=== PATIENT | male | born 1960 | race Caucasian/White ===

== ENCOUNTER 2025-07-22 10:57 | Emergency (ER) | payer OTHER ==
[~2025-07-22] VITALS: Ht 195.6 cm; Wt 122.2 kg
--- NOTE | 2025-07-22 11:27 | ED.PDOC ---
Tiffani. trauma (HPI) HPI Comments HPI: 64 year old male presents to the ED with a chief complaint of fall injury onset this morning around 02:00. Patient states he woke up this morning around 02:00, tripped over his dog, hit his head and LT eye on laundry hamper, had LOC for a few seconds. states patient tried to get up, experienced two consecutive syncopal episodes, witnessed by , assisted to ground. He is currently experiencing Lt eye pain with bruising and redness, RT knee pain and swelling. Denies chest pain, blurred vision, changes in vision, numbness/tingling, headache, nausea, vomiting, diarrhea. No other symptoms or modifying factors present at this time. Initial Vitals BP: 174/105 HR: 95 RR: 20 O2 Sat: 99% Temp: 98.0 F Past Medical history: HTN Past Surgical history: LT knee surgery -x3 Medications: Denies Social History: Denies smoking, ETOH, and drug use. Allergies: NKDA [place]: fall, syncope, L periorbital/eye lid injury contusion. neuro intact. c spine intact. L knee pain, normal. HPI: Poor Historian. REVIEW OF SYSTEMS: CONSTITUTIONAL: Denies acute: fever, diaphoresis, chills, generalized weakness. HEAD: Denies acute: headache, photophobia Eyes: Denies acute: Double vision, vision loss, eye discharge. EARS: Denies acute: tinnitus, hearing loss, ear discharge, ear pain, THROAT: Denies acute: sore throat, swelling, difficulty swallowing , pain with swallowing, change in voice. NECK: Denies acute: neck pain, neck swelling, stiff neck. HEART: Denies acute : chest pain, palpitations, LUNGS: Denies acute: SOB, wheezing, cough, hemoptysis ABDOMEN: Denies acute: abdominal pain, Nausea, Vomiting, diarrhea, melena , hematemesis, hematochezia SKIN: Denies acute: rash, redness, lesions, itchiness. EXTREMITIES: Denies acute: calf pain, numbness, tingling, weakness, denies pain in extremity. Denies acute: Low back pain. Neuro: Denies acute: focal neurological deficit, motor or sensory focal neurological deficit, tremors, seizure like activity, confusion, change in mental status, loss of bowel or bladder function, cauda equina like symptoms. : Denies acute: dysuria, hematuria, flank pain, increase in urinary frequency. PSYCH: Denies acute: hallucination, suicidal ideation, homicidal ideation. PHYSICAL EXAM: General: ----no----acute distress, awake and alert. Head: normocephalic, atraumatic. No raccoon's eyes, no roy sign. Neck: supple, trachea is midline, no swelling. Cervical spine: Palpation of the posterior midline of the cervical spine reveals no focal swelling, erythema, focal tenderness to palpation. Patient has normal range of motion. Throat: Normal phonation. Eyes:, no purulent discharge, no proptosis, no icterus. Left upper eyelid contusion. No entrapment. Extraocular muscles are intact. No vision changes. Heart: regular rate, regular rhythm, no significant murmur appreciated. Lungs: no apparent respiratory distress, Able to speak in full sentences. No wheezing, no rhonchi, no crackles. No stridors Clear to auscultation bilaterally. Abdomen: non tender to palpation, non distended, soft, no guarding, no rebound, + bowel sounds. Neuro: Awake, Alert, oriented to name, self, situation, follows commands GCS=15. Speech is normal. Skin: no petechia, no purpura, no cyanosis, non-pale, not jaundice. Lower extremities: --no - Pitting edema no deformity, no focal swelling, no calf TTP. Makes eye contact. moves all four extremities. Face: no apparent facial droop. Ambulating in the ED independently. PERRLA, EOM-I CN 2-12 are grossly intact, No nystagmus. No nuchal rigidity, Kernig's sign, Brudzinski's sign, no meningeal signs. ED COURSE: DISCLAIMER: This medical document was created using an electronic medical record system with voice recognition software and computerized dictation system. Although this document has been carefully reviewed, there might still be some phonetic and typographical errors. Occasional wrong-word or "sound-alike" substitutions may have occurred due to the inherent limitations of voice recognition software. These areas are purely typographical due to imperfections of the software programs and do not reflect any compromise in the patient's medical care. Please read the chart carefully and recognize, using context, where these substitutions have occurred. Chief Complaint: Fall Injury Time Seen by MD: 11:20 Reviewed notes: Medications, Allergies Information Source: Patient, Spouse Mode of Arrival: Ambulatory Timing: Hours Duration: Since onset Prehospital treatment: None Past Medical History PAST MEDICAL HISTORY: HTN Surgical History: Denies all surgeries Family History Family History: Reviewed,noncontributory to illness, No family hx of Cancer, No family hx of DM, No family hx of Heart esther, No family hx of HTN, No family hx ofKidney esther, No family hx of Liver esther, No family hx of Lung esther, No family hx of Stroke Social History Smoker: Non-Smoker Alcohol: Occasionally Drugs: Denies Drug Use Lives In: Home Was a procedure done? Was a procedure done?: No X-Ray, Labs, Meds, VS Vital Signs Date Time Temp Pulse Resp B/P (MAP) Pulse Ox O2 Delivery O2 Flow Rate FiO2 07/22/25 11:01 98.0 95 20 174/105 99 98.0 Lab Test 07/22/25 12:22 07/22/25 11:38 Range/Units Troponin I High Sensitivity 21 Pending White Blood Count 6.3 4.4-10.8 10^3/uL Red Blood Count 5.10 4.5-5.90 10^6/uL Hemoglobin 17.5 13.5-17.5 g/dL Hematocrit 49.1 41.0-53.0 % Mean Corpuscular Volume 96.2 80.0-100.0 fL Mean Corpuscular Hemoglobin 34.4 H 28.0-32.0 pg Mean Corpuscular Hemoglobin Concent 35.8 32.0-36.0 g/dL Red Cell Distribution Width 13.1 11.8-14.3 % Platelet Count 245 140-450 10^3/uL Mean Platelet Volume 7.2 6.9-10.8 fL Neutrophils (%) (Auto) 63.9 37.0-80.0 % Lymphocytes (%) (Auto) 22.4 10.0-50.0 % Monocytes (%) (Auto) 10.5 0.0-12.0 % Eosinophils (%) (Auto) 2.8 0.0-7.0 % Basophils (%) (Auto) 0.4 0.0-2.0 % Neutrophils # (Auto) 4.0 1.6-8.6 10 ^3/uL Lymphocytes # (Auto) 1.4 0.4-5.4 10 ^3/uL Monocytes # (Auto) 0.7 0-1.3 10 ^3/uL Eosinophils # (Auto) 0.2 0-0.8 10 ^3/uL Basophils # (Auto) 0 0-0.2 10 ^3/uL Nucleated Red Blood Cells 0.1 % Sodium Level 138 136-145 mmol/L Potassium Level 3.9 3.5-5.1 mmol/L Chloride Level 102 98-107 mmol/L Carbon Dioxide Level 26 20-31 mmol/L Anion Gap 10 5-15 Blood Urea Nitrogen 8 L 9-23 mg/dL Creatinine 1.10 0.700-1.30 mg/dL Glomerular Filtration Rate Calc 75 >90 mL/min BUN/Creatinine Ratio 7.3 L 10.0-20.0 Serum Glucose 117 H 74-106 mg/dL Calcium Level 9.6 8.7-10.4 mg/dL Total Bilirubin 0.8 0.2-1.0 mg/dL Aspartate Amino Transferase (AST) 38 13-40 U/L Alanine Aminotransferase (ALT) 50 H 7-40 U/L Alkaline Phosphatase 91 46-116 U/L Total Protein 8.0 5.7-8.2 g/dL Albumin 4.9 H 3.2-4.8 g/dL Plasma/Serum Blood Alcohol < 3.0 <10 mg/dL [place] [address] Ph: [phone] DIAGNOSTIC IMAGING Diagnostic Imaging Report : [id number] Signed PATIENT: MARCOS PENDLETON ACCT: [id number] UNIT: [id number] : 1960 LOC: ER ROOM / BED: / AGE / SEX: 64 / M ADM STATUS: REG ER SERVICE 1122 ORDERING PHYSICIAN: NEAL CANELA DO PROCEDURE(s): FAC2C - MAXILLOFACIAL WITHOUT REASON: fall, L eye bruise ORDER NUMBER(s): [id number], ACCESSION NUMBER(s): [id number] CLINICAL INFORMATION: Fall injury. Left eye bruising. TECHNIQUE: Axial CT images of the maxillofacial region were obtained without contrast. Coronal and sagittal reformatted images were obtained, reviewed, and stored. One or more of the following dose reduction techniques were used: Automated exposure control. Adjustment of mA and/or kV according to patient size. CTDIvol = 66.95 mGy DLP = 1660.99 mGy-cm COMPARISON: None FINDINGS: The pterygoid plates and zygomatic arches are intact. Sinus arguello and orbital arguello are intact. Nasal bones and mandible are intact. No evidence of facial bone fracture. Mild left periorbital soft tissue swelling/hematoma. No orbital hematoma. Globes and orbital structures appear otherwise intact. No significant proptosis. Mild mucosal thickening of the paranasal sinuses. No significant soft tissue abnormality identified. IMPRESSION: 1. No evidence of acute facial bone fracture. 2. Mild left periorbital soft tissue swelling/hematoma. No orbital hematoma. Globes and orbital structures appear otherwise intact. ATED BY: EARL GALLEGOS DO DICTATED DATE/TIME: 07/22/25 1236 SIGNED BY: EARL GALLEGOS DO SIGNED DATE/TIME: 07/22/25 1236 CC: [place] [address] Ph: [phone] DIAGNOSTIC IMAGING Diagnostic Imaging Report : [id number] Signed PATIENT: MARCOS PENDLETON ACCT: [id number] UNIT: [id number] : 1960 LOC: ER ROOM / BED: / AGE / SEX: 64 / M ADM STATUS: REG ER SERVICE 1122 ORDERING PHYSICIAN: NEAL CANELA DO PROCEDURE(s): LKNE3 - L KNEE 3V XRAY REASON: fall ORDER NUMBER(s): [id number], ACCESSION NUMBER(s): [id number] CLINICAL INDICATION: fall TECHNIQUE: 3-view XY L KNEE 3V XRAY COMPARISON: None FINDINGS/IMPRESSION: : There is no evidence of acute fracture or dislocation. Soft tissues are unremarkable. 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 Moderate joint effusion. No fracture ATED BY: BERNADINE DARNELL MD DICTATED DATE/TIME: 07/22/251226 SIGNED BY: BERNADINE DARNELL MD SIGNED DATE/TIME: 07/22/251226 CC: [place] [address] Ph: [phone] DIAGNOSTIC IMAGING Diagnostic Imaging Report : [id number] Signed PATIENT: MARCOS PENDLETON ACCT: [id number] UNIT: [id number] : 1960 LOC: ER ROOM / BED: / AGE / SEX: 64 / M ADM STATUS: REG ER SERVICE 21 ORDERING PHYSICIAN: NEAL CANELA DO PROCEDURE(s): HWOCT - HEAD WITHOUT CONTRAST REASON: head injury ORDER NUMBER(s): [id number], ACCESSION NUMBER(s): [id number] EXAM: CT HEAD WITHOUT CONTRAST INDICATION: head injury TECHNIQUE: CT of the head without intravenous contrast. Radiation Dose : 1. Head: CT Dose: CTDI volume is 123 mGy. Dose-length product is 3121 mGy*cm The dose indicators for CT are the volume Computed Tomography (CT) Dose Index (CTDIvol) and the Dose Length Product (DLP), and are measured in units of mGy and mGy-cm, respectively. These indicators are not patient dose, but values generated from the CT scanner acquisition factors. The report includes radiation exposure data for exposures received during this examination. COMPARISON: None FINDINGS: There is no evidence of acute intracranial hemorrhage, extra-axial collection, mass effect, midline shift, herniation or hydrocephalus. The ventricles, sulci and cisterns are age appropriate. The barragan-white differentiation is intact. Patchy periventricular and subcortical white matter hypoattenuation is non specific but may be related to small vessel ischemic disease. The visualized paranasal sinuses and mastoid air cells are clear. The surrounding soft tissues and osseous structures are unremarkable. 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 IMPRESSION: 1. No acute intracranial abnormality. Radiation optimization: All CT scans at this facility use at least one of these dose optimization techniques: automated exposure control mA and/or kV adjustment per patient size (includes targeted exams where dose is matched to clinical indication) or iterative reconstruction. ATED BY: BERNADINE DARNELL MD DICTATED DATE/TIME: 07/22/25 1231 SIGNED BY: BERNADINE DARNELL MD SIGNED DATE/TIME: 07/22/25 1231 CC: Time of 1ST Reevaluation: 11:50 Reevaluation 1ST: Unchanged Time of 2ND Reevaluation: 13:30 (The case was discussed with the [facility] admitting team (HPI, physical exam, labs and diagnostic tests that were available at the time of disposition, ED course, treatment plan) on the phone. They agreed to transfer the patient to their service by ALS for further evaluation and treatment. Dr. alonzo--. Authorization number is--[id number]) Reevaluation 2ND: Unchanged Patient Education/Counseling: Diagnosis, Treatment Family Education/Counseling: Diagnosis, Treatment Departure 1 Departure Time of Disposition: 12:47 Impression: Primary Impression: Syncope Additional Impressions: Closed head injury Contusion, eyelid, left Fall Moderate sized effusion of knee Disposition: ADMITTED INPATIENT Additional Instructions: [place] [address] Ph: [phone] DIAGNOSTIC IMAGING Diagnostic Imaging Report : [id number] Signed PATIENT: MARCOS PENDLETON ACCT: [id number] UNIT: [id number] : 1960 LOC: ER ROOM / BED: / AGE / SEX: 64 / M ADM STATUS: REG ER SERVICE 1122 ORDERING PHYSICIAN: NEAL CANELA DO PROCEDURE(s): FAC2C - MAXILLOFACIAL WITHOUT REASON: fall, L eye bruise ORDER NUMBER(s): [id number], ACCESSION NUMBER(s): [id number] CLINICAL INFORMATION: Fall injury. Left eye bruising. TECHNIQUE: Axial CT images of the maxillofacial region were obtained without contrast. Coronal and sagittal reformatted images were obtained, reviewed, and stored. One or more of the following dose reduction techniques were used: Automated exposure control. Adjustment of mA and/or kV according to patient size. CTDIvol = 66.95 mGy DLP = 1660.99 mGy-cm COMPARISON: None FINDINGS: The pterygoid plates and zygomatic arches are intact. Sinus arguello and orbital arguello are intact. Nasal bones and mandible are intact. No evidence of facial bone fracture. Mild left periorbital soft tissue swelling/hematoma. No orbital hematoma. Globes and orbital structures appear otherwise intact. No significant proptosis. Mild mucosal thickening of the paranasal sinuses. No significant soft tissue abnormality identified. IMPRESSION: 1. No evidence of acute facial bone fracture. 2. Mild left periorbital soft tissue swelling/hematoma. No orbital hematoma. Globes and orbital structures appear otherwise intact. ATED BY: EARL GALLEGOS DO DICTATED DATE/TIME: 07/22/251235 SIGNED BY: EARL GALLEGOS DO SIGNED DATE/TIME: 07/22/251235 CC: [place] [address] Ph: [phone] DIAGNOSTIC IMAGING Diagnostic Imaging Report : [id number] Signed PATIENT: MARCOS PENDLETON ACCT: [id number] UNIT: [id number] : 1960 LOC: ER ROOM / BED: / AGE / SEX: 64 / M ADM STATUS: REG ER SERVICE 1122 ORDERING PHYSICIAN: NEAL CANELA DO PROCEDURE(s): LKNE3 - L KNEE 3V XRAY REASON: fall ORDER NUMBER(s): [id number], ACCESSION NUMBER(s): [id number] CLINICAL INDICATION: fall TECHNIQUE: 3-view XY L KNEE 3V XRAY COMPARISON: None FINDINGS/IMPRESSION: : There is no evidence of acute fracture or dislocation. Soft tissues are unremarkable. 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 Moderate joint effusion. No fracture ATED BY: BERNADINE DARNELL MD DICTATED DATE/TIME: 07/22/251226 SIGNED BY: BERNADINE DARNELL MD SIGNED DATE/TIME: 07/22/251226 CC: [place] [address] Ph: [phone] DIAGNOSTIC IMAGING Diagnostic Imaging Report : [id number] Signed PATIENT: MARCOS PENDLETON ACCT: [id number] UNIT: [id number] : 1960 LOC: ER ROOM / BED: / AGE / SEX: 64 / M ADM STATUS: REG ER SERVICE 1122 ORDERING PHYSICIAN: NEAL CANELA DO PROCEDURE(s): HWOCT - HEAD WITHOUT CONTRAST REASON: head injury ORDER NUMBER(s): [id number], ACCESSION NUMBER(s): [id number] EXAM: CT HEAD WITHOUT CONTRAST INDICATION: head injury TECHNIQUE: CT of the head without intravenous contrast. Radiation Dose : 1. Head: CT Dose: CTDI volume is 123 mGy. Dose-length product is 3121 mGy*cm The dose indicators for CT are the volume Computed Tomography (CT) Dose Index (CTDIvol) and the Dose Length Product (DLP), and are measured in units of mGy and mGy-cm, respectively. These indicators are not patient dose, but values generated from the CT scanner acquisition factors. The report includes radiation exposure data for exposures received during this examination. COMPARISON: None FINDINGS: There is no evidence of acute intracranial hemorrhage, extra-axial collection, mass effect, midline shift, herniation or hydrocephalus. The ventricles, sulci and cisterns are age appropriate. The barragan-white differentiation is intact. Patchy periventricular and subcortical white matter hypoattenuation is nonspecific but may be related to small vessel ischemic disease. The visualized paranasal sinuses and mastoid air cells are clear. The surrounding soft tissues and osseous structures are unremarkable. 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 IMPRESSION: 1. No acute intracranial abnormality. Radiation optimization: All CT scans at this facility use at least one of these dose optimization techniques: automated exposure control mA and/or kV adjustment per patient size (includes targeted exams where dose is matched to clinical indication) or iterative reconstruction. ATED BY: BERNADINE DARNELL MD DICTATED DATE/TIME: 07/22/25 123 SIGNED BY: BERNADINE DARNELL MD SIGNED DATE/TIME: 07/22/25 123 Discharged With: Self Critical Care Note Critical Care Time?: No I personally scribed for NEAL CANELA DO ([email or web address]) on 07/22/25 at 11:27. Electronically submitted by Angelica Goodson ([email or web address]). I personally scribed for NEAL CANELA DO ([email or web address]) on 07/22/25 at 11:34. Electronically submitted by Angelica Goodson ([email or web address]). I personally scribed for NEAL CANELA DO ([email or web address]) on 07/22/25 at 12:43. Electronically submitted by Angelica Goodson ([email or web address]). NEAL CANELA DO Jul 22, 2025 11:27
[2025-07-22 11:59] LABS: Hematocrit 49.1 % (41.0-53.0); Mean Corpuscular Hemoglobin 34.4 pg (28.0-32.0); Nucleated Red Blood Cells % 0.1 %
[2025-07-22 12:02] LABS: Hemoglobin 17.5 g/dL (13.5-17.5); Mean Corpuscular Volume 96.2 fL (80.0-100.0)
[2025-07-22 12:15] LABS: Alkaline Phosphatase 91 U/L (46-116); Anion Gap 10 (5-15); BUN/Creatinine Ratio 7.3 (10.0-20.0); Calcium 9.6 mg/dL (8.7-10.4); Carbon Dioxide 26 mmol/L (20-31); Chloride 102 mmol/L (98-107); Potassium 3.9 mmol/L (3.5-5.1); Sodium 138 mmol/L (136-145); Total Protein 8.0 g/dL (5.7-8.2)
[2025-07-22 12:16] LABS: Alanine Aminotransferase 50 U/L (7-40); Albumin 4.9 g/dL (3.2-4.8); Bilirubin, Total 0.8 mg/dL (0.2-1.0); Blood Urea Nitrogen 8 mg/dL (9-23); Glucose 117 mg/dL (74-106)
--- NOTE | 2025-07-22 12:30 | DVH ---
CLINICAL INDICATION: fall TECHNIQUE: 3-view XY L KNEE 3V XRAY COMPARISON: None FINDINGS/IMPRESSION: : There is no evidence of acute fracture or dislocation. Soft tissues are unremarkable. 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 Moderate joint effusion. No fracture
--- NOTE | 2025-07-22 12:33 | DVH ---
EXAM: CT HEAD WITHOUT CONTRAST INDICATION: head injury TECHNIQUE: CT of the head without intravenous contrast. Radiation Dose : 1. Head: CT Dose: CTDI volume is 123 mGy. Dose-length product is 3121 mGy*cm The dose indicators for CT are the volume Computed Tomography (CT) Dose Index (CTDIvol) and the Dose Length Product (DLP), and are measured in units of mGy and mGy-cm, respectively. These indicators are not patient dose, but values generated from the CT scanner acquisition factors. The report includes radiation exposure data for exposures received during this examination. COMPARISON: None FINDINGS: There is no evidence of acute intracranial hemorrhage, extra-axial collection, mass effect, midline shift, herniation or hydrocephalus. The ventricles, sulci and cisterns are age appropriate. The barragan-white differentiation is intact. Patchy periventricular and subcortical white matter hypoattenuation is nonspecific but may be related to small vessel ischemic disease. The visualized paranasal sinuses and mastoid air cells are clear. The surrounding soft tissues and osseous structures are unremarkable. 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 IMPRESSION: 1. No acute intracranial abnormality. Radiation optimization: All CT scans at this facility use at least one of these dose optimization techniques: automated exposure control mA and/or kV adjustment per patient size (includes targeted exams where dose is matched to clinical indication) or iterative reconstruction.
--- NOTE | 2025-07-22 12:38 | DVH ---
CLINICAL INFORMATION: Fall injury. Left eye bruising. TECHNIQUE: Axial CT images of the maxillofacial region were obtained without contrast. Coronal and sagittal reformatted images were obtained, reviewed, and stored. One or more of the following dose reduction techniques were used: Automated exposure control. Adjustment of mA and/or kV according to patient size. CTDIvol = 66.95 mGy DLP = 1660.99 mGy-cm COMPARISON: None FINDINGS: The pterygoid plates and zygomatic arches are intact. Sinus arguelol and orbital arguello are intact. Nasal bones and mandible are intact. No evidence of facial bone fracture. Mild left periorbital soft tissue swelling/hematoma. No orbital hematoma. Globes and orbital structures appear otherwise intact. No significant proptosis. Mild mucosal thickening of the paranasal sinuses. No significant soft tissue abnormality identified. IMPRESSION: 1. No evidence of acute facial bone fracture. 2. Mild left periorbital soft tissue swelling/hematoma. No orbital hematoma. Globes and orbital structures appear otherwise intact.
[2025-07-22 14:09] VITALS: PULSE 91; RESP 18; O2SAT 99
[2025-07-22] MEDS ORDERED: LABETALOL HCL 20 MG/4 ML VL IV ONE (14:15)
[2025-07-22] MEDS: hydrALAZINE HCL 20 MG/ML VL IV ONE ×2 (14:36→15:14)
--- NOTE | 2025-07-22 16:37 | ECG ---
[facility] Test Date: 2025-07-22 Test Time: 14:13:12 Pat Name: MARCOS PENDLETON Department: ED Room: Gender: M Warp Tension Tester: FAY : 1960 Requested By: NEAL CANELA Order Number: [id number] Reading MD: Measurements Intervals [place] Rate: 84 P: 48 AR: 157 QRS: 26 QRSD: 78 T: -13 QT: 351 QTc: 415 Interpretive Statements Sinus rhythm Low voltage, precordial leads Abnormal R-wave progression, early transition Borderline repolarization abnormality Baseline wander in lead(s) I,II,aVR,aVL Please click the below link to view image of tracing.
[2025-07-22] MEDS: LABETALOL HCL 20 MG/4 ML VL IV ONE (19:12)
[2025-07-22 19:30] VITALS: PULSE 97; RESP 20; O2SAT 97
[2025-07-22 21:50] VITALS: BP 139/83; PULSE 76; RESP 26; TEMP 97.6; O2SAT 94
== END 2025-07-22 22:16 | disposition short-term general hospital (02) ==
LOC: ER 10:57
DX: S05.12XA Contusion of eyeball and orbital tissues, left eye, initial encounter (principal); S09.90XA Unspecified injury of head, initial encounter; R55 Syncope and collapse; I10 Essential (primary) hypertension; W19.XXXA Unspecified fall, initial encounter; Y93.89 Activity, other specified; Y92.89 Other specified places as the place of occurrence of the external cause; Y99.8 Other external cause status
CPT/HCPCS: 36415; 70450; 70486; 73562; 80053; 80320; 84484; 85025; 93005; 96374; 96375; 96376; 99285; J0360